=== PATIENT | female | born 1970 | race Caucasian/White ===

== ENCOUNTER → 2018-05-13 | Outpatient (CLI) | payer BC | LOC: MC.RAD 14:02 | DX: Z12.31 Encounter for screening mammogram for malignant neoplasm of breast (principal); Z98.82 Breast implant status ==

== ENCOUNTER 2021-11-17 11:32 | Day surgery (SDC) | payer OTHER ==
[~2021-11-17] VITALS: Ht 172.7 cm; Wt 66.8 kg
[2021-11-17 13:55] VITALS: BP 113/83; PULSE 97; TEMP 98.1
[2021-11-17 14:00] VITALS: BP 110/83; PULSE 88
[2021-11-17 14:15] VITALS: BP 112/85; PULSE 86
--- NOTE | 2021-11-17 14:44 | NUR ---
Pt returned via cart to recliner in bay. VSS-see flowsheet. Pt tolerated oral intake. IV removed, pressure dressing applied. Discharge teaching completed, verbalized understanding. Pt taken via wheelchair to private vehicle for dc home with driving. Pt left with dc packet.
[2021-11-17 15:50] VITALS: BP 136/93; PULSE 115; TEMP 97.5
== END 2021-11-17 14:45 | disposition home or self-care (01) ==
LOC: SDCO 11:32
DX: Z12.11 Encounter for screening for malignant neoplasm of colon (principal); K57.30 Diverticulosis of large intestine without perforation or abscess without bleeding; Z80.0 Family history of malignant neoplasm of digestive organs
CPT/HCPCS: J2704; J7120